=== PATIENT | male | born 1950 | race Caucasian/White ===

== ENCOUNTER → 2017-11-23 | Outpatient (CLI) | payer MEDICARE, BC ==
--- NOTE | 2017-11-23 08:32 | US ---
EXAMINATION TYPE: US prostate transrectal DATE OF EXAM: 11/23/2017 COMPARISON: NONE CLINICAL HISTORY: R97.2 Elevated prostate specific antigen [PSA]. Elevated PSA This examination was performed using the transrectal probe. EXAM MEASUREMENTS: Gland Size: 4.4 x 2.6 x 5.0cm Volume: 29.7ml Predicted PSA: 3.6 Actual PSA (if available):6.4 Mildly heterogeneous gland without any definite lesions seen within the peripheral zone, calcificatio ns seen within central zone. IMPRESSION: 1. The prostate gland is heterogenous without discrete hypoechoic peripheral zone nodule. This should not preclude the need for biopsy in a patient with elevated PSA. 2. 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 Predicted PSA = volume x 0.12 ng/ml Calculated Volume = 0.5236 x L x W x H
== END | disposition home or self-care (01) ==
LOC: RADUSMAIN 07:15
PROVIDERS: ATTEND Family Medicine
DX: N40.0 Benign prostatic hyperplasia without lower urinary tract symptoms (principal)
CPT/HCPCS: 76872

== ENCOUNTER → 2022-10-12 | Outpatient (CLI) | payer MEDICARE, BC ==
--- NOTE | 2022-10-12 11:14 | MR ---
EXAMINATION TYPE: MR Prostate wo/w con DATE OF EXAM: 10/12/2022 10:02 AM COMPARISON: None. CLINICAL INDICATION:Male, 72 years old with history of C61 MALIGNANT NEOPLASM OF PROSTATE; [facility], TECHNIQUE: Multi-planar, multi-sequence imaging of the pelvis is performed prior to and following the uncomplicated administration of bolus intravenous gadolinium. CONTRAST: 8 Gadavist Interpretive Criteria: PI-RADS v2.1 SERUM PSA: 17.15 on 01/15/2022. 16.4 on 09/04/2021. 1.6 on 11/13/2020. SURGICAL PATHOLOGY: Biopsy performed 2018 * LEFT apex 3+3 = 6 [place], * RIGHT apex 3+3 = 6 [place] FINDINGS: Prostatic dimensions: 4.7 x 3.9 x 3.8 cm. "Bullet" Volume: 45.59 (PSA density=0.38 ng/mL/mL) CENTRAL GLAND (Central and Transition Zones/CZ+TZ): High DWI and low ADC signal within the left central gland apex measuring 16 x 12 mm and within the ri ght central gland apex is an area of low ADC signal without associated high DWI signal measuring at l east 10 mm. This area correlates with pathology report of a positive biopsy on the left. PERIPHERAL ZONE (PZ): Bilateral linear, indistinct wedgelike areas of low ADC, and low T2 signal, No evidence of masslike a bnormality, or localized perfusional hypervascularity, to further suggest a focus of clinically signi ficant prostate cancer. (PI-RADS 2) SEMINAL VESICLES (SV): Diffusely collapse or atrophic, bilaterally. PERIPROSTATIC TISSUES: Unremarkable. LYMPH NODES: No enlarged pelvic lymph node. REMAINING PELVIS: Bladder wall is within normal limits given distention. No abnormal free or organized intrapelvic fluid collection. No pathologic bowel dilation or mural thickening. Trace bilateral hydroceles. Scattered colonic diverticula. OSSEOUS STRUCTURES: No suspicious osseous abnormality. IMPRESSION: 1. Left central gland apex lesion compatible with prior positive biopsy. The right central gland apex is not definitively have a area of high DWI signal but there is an area of low DWI signal that may r eflect the area that was previously positive on biopsy. No evidence of extracapsular extension or met astatic disease at this time. 2. Mild BPH, estimated gland volume 45.59 mL. 3. No suspicious osseous lesion. No lymphadenopathy specifically no greater than 1.0 cm short axis ly mph nodes identified. No evidence of prostate adenocarcinoma involving the periprostatic tissues. 4. Colonic diverticulosis.
== END | disposition home or self-care (01) ==
LOC: RADMRIMAIN 08:24
PROVIDERS: ATTEND Urology
DX: C61 Malignant neoplasm of prostate (principal); N40.0 Benign prostatic hyperplasia without lower urinary tract symptoms; K57.30 Diverticulosis of large intestine without perforation or abscess without bleeding
CPT/HCPCS: 72197; A9585

== ENCOUNTER → 2022-11-09 | Outpatient (CLI) | payer MEDICARE, BC ==
[2022-11-09 15:32] LABS: BUN/Creat Ratio 10.09 Ratio (12.00-20.00); Blood Urea Nitrogen 11.1 mg/dL (9.0-27.0); Calcium 9.6 mg/dL (8.7-10.3); Carbon Dioxide 25.1 mmol/L (21.6-31.8); Chloride 95 mmol/L (96-109); Glucose 96 mg/dL (70-110); Potassium 4.7 mmol/L (3.5-5.5); Sodium 132 mmol/L (135-145)
[2022-11-09 16:15] LABS: Basophils # (A) 0.07 X 10*3/uL (0.00-0.10); Eosinophils # (A) 0.06 X 10*3/uL (0.04-0.35); Eosinophils % (A) 0.9 %; HCT 39.7 % (39.6-50.0); HGB 14.3 d/dL (12.0-15.0); Lymphocytes # (A) 2.03 X 10*3/uL (0.90-5.00); Lymphocytes % (A) 29.8 %; MCH 36.6 pg (27.0-32.0); MCV 101.5 FL (80.0-97.0); Mean Platelet Volume 9.8 FL (9.5-12.2); Monocytes # (A) 0.79 X 10*3/uL (0.20-1.00); Monocytes % (A) 11.6 %; NRBC Per 100 WBC 0 X 10*3/uL (0.00-0.01); Neutrophils # (A) 3.83 X 10*3/uL (1.80-7.70); Neutrophils % (A) 56.3 %; Platelet Count 266 X 10*3/uL (140-440); RBC 3.91 X 10*6/uL (4.40-5.60); RDW 11.5 % (11.5-14.5); WBC 6.81 X 10*3/uL (4.50-10.00)
== END | disposition home or self-care (01) ==
LOC: LABPAT 09:03
PROVIDERS: ATTEND Urology
DX: Z01.812 Encounter for preprocedural laboratory examination (principal); C61 Malignant neoplasm of prostate
CPT/HCPCS: 80048; 85025

== ENCOUNTER 2022-11-18 10:51 | Day surgery (SDC) | payer MEDICARE, BC ==
--- NOTE | 2022-11-17 19:27 | P.GSHP ---
History of Present Illness H&P Date: 11/17/22 72 yo male with a diagnosis with prostate cancer, 12/2017, 2/12 g 6 rt and left apices in a 26 ml prostate. His psa was 8.5. He had a trus with negative biopsies 12/2019. His psa has risen to 17 last year and 23 this year. He had an mri recently identifying a pyrad 5 area in the left central gland apex in a 45 gm prostate. Due to that and the rising psa he comes for a fusion biopsy by Dr Peralta. - Constitutional Constitutional: Denies chills, Denies fever - EENT Eyes: denies blurred vision, denies pain Ears, nose, mouth and throat: Denies headache, Denies sore throat - Cardiovascular Cardiovascular: Denies chest pain, Denies shortness of breath - Respiratory Respiratory: Denies cough, Denies 7 - Gastrointestinal Gastrointestinal: Denies abdominal pain, Denies diarrhea, Denies nausea, Denies vomiting - Genitourinary (Female) Genitourinary: Denies dysuria, Denies hematuria - Genitourinary (Male) Genitourinary: Denies dysuria, Denies hematuria - Musculoskeletal Musculoskeletal: Denies myalgias - Integumentary Integumentary: Denies pruritus, Denies rash - Neurological Neurological: Denies numbness, Denies weakness - Psychiatric Psychiatric: Denies anxiety, Denies depression - Endocrine Endocrine: Denies fatigue, Denies weight change Past Medical History Past Medical History: Hypertension, Prostate Disorder Additional Past Medical History / Comment(s): seasonal allergies History of Any Multi-Drug Resistant Organisms: None Reported Past Surgical History: Back Surgery, Hernia Repair Additional Past Surgical History / Comment(s): back surgery x2 2002 last one. Past Anesthesia/Blood Transfusion Reactions: No Reported Reaction Smoking Status: Former smoker - Past Family History Father Family Medical History: Cancer Additional Family Medical History / Comment(s): lung Medications and Allergies Home Medications Medication Instructions Recorded Confirmed Type Fluticasone Propionate [Flonase 1 spray EA NOSTRIL DAILY PRN 11/12/22 11/12/22 History Allergy Relief] Losartan/Hydrochlorothiazide 1 tab PO DAILY 11/12/22 11/12/22 History [Losartan-Hctz 100-25 mg Tab] Allergies Allergy/AdvReac Type Severity Reaction Status Date / Time No Known Allergies Allergy Verified 11/12/22 15:21 Surgical - Exam - General well developed, well nourished, no distress - Eyes normal ocular movement, no icteric - ENT no hearing loss, no congestion - Neck no masses, trachea midline - Respiratory normal respiratory effort, clear to auscultation - Abdomen Abdomen: soft, non tender, no guarding, no rigid, no rebound - Integumentary no rash, no abnormal pigmentation - Neurologic no disoriented, no combative - Psychiatric oriented to time, oriented to person, oriented to place, speech is normal, memory intact Assessment and Plan Assessment: Impression: Ca prostate, positive mri, pyrad 5 lesion Plan: transrectal us with fusion biopsy.
[2022-11-18 12:36] VITALS: RESP 16; TEMP 97.5
[2022-11-18] MEDS: LACTATED RINGERS 1,000 ML IV ONE (12:45)
[2022-11-18] MEDS ORDERED: LACTATED RINGERS 1,000 ML IV ONE (12:45)
[2022-11-18] MEDS ORDERED: MIDAZOLAM 2 MG/2 ML VIAL IVP ONE (13:03)
[2022-11-18] MEDS: GENTAMICIN 100 MG in SODIUM CHLORIDE 0.9% 100 ML IVPB PRN ×2 (13:05→14:18)
[2022-11-18] MEDS ORDERED: MIDAZOLAM 2 MG/2 ML VIAL ONE (14:18)
[2022-11-18] MEDS ORDERED: fentaNYL (PF) 50 MCG/ML 2 ML AMP ONE (14:18)
[2022-11-18] MEDS ORDERED: PROPOFOL 10 MG/ML 20 ML VIAL IV ONE (14:18)
[2022-11-18] MEDS ORDERED: SODIUM CHLORIDE 0.9% 100 ML with GENTAMICIN 100 MG IV ONE ×2 (14:18)
--- NOTE | 2022-11-18 14:44 | P.OP ---
Date of Procedure: 11/18/22 Preoperative Diagnosis: Adenocarcinoma the prostate Postoperative Diagnosis: Same Procedure(s) Performed: MRI ultrasound fusion biopsies of the prostate Anesthesia: MAC Surgeon: Yusuf Peralta Estimated Blood Loss (ml): 5 IV fluids (ml): 200 Pathology: other (Prostate biopsies) Condition: stable Disposition: PACU Indications for Procedure: Patient is a 72-year-old white male diagnosed with prostate cancer in 2018. His Nyla score is 6/10. He chose active surveillance overtreatment. His PSA level at the time of diagnosis was 8.5 but has risen to 23. Recent MRI shows a left central gland PI-RADS 5 lesion. Operative Findings: 3 biopsies obtained from target lesion, additional 12 biopsies obtained. Description of Procedure: The patient was taken to the operating room and placed in the left lateral decubitus position. The Novogy transrectal ultrasound probe was placed intrarectally. It was then placed within the stand of the [employer] MRI/TRUS Fusion for Prostate Biopsy system. The prostate was imaged in both the axial and sagittal planes, revealing a prostate volume of 33 mL. Using the Biopty gun, 3 biopsies were obtained from the left-sidid target lesion. The remaining biopsies of the peripheral zone were obtained utilizing a standard template. Once the procedure was completed, the ultrasound probe was removed. The patient tolerated the procedure well was taken to the recovery room stable condition.
[2022-11-18 15:23] VITALS: BP 108/70; PULSE 78
== END 2022-11-18 15:41 | disposition home or self-care (01) ==
LOC: OR 10:51
PROVIDERS: ATTEND Urology
DX: C61 Malignant neoplasm of prostate (principal); R97.20 Elevated prostate specific antigen [PSA]; I10 Essential (primary) hypertension; Z87.891 Personal history of nicotine dependence; Z79.899 Other long term (current) drug therapy
CPT/HCPCS: 55700; 88344; 88305; J2250; J1580 ×2; J0690; J3010; J2704

== ENCOUNTER → 2022-12-21 | Outpatient (CLI) | payer MEDICARE, BC ==
[2022-12-21 10:12] LABS: African American GFR (CKD) >90 (>60 ml/min/1.73 sqM); Blood Urea Nitrogen 12 mg/dL (9-20); Non-African American GFR(CKD) 86 (>60 ml/min/1.73 sqM)
--- NOTE | 2022-12-21 13:52 | CT ---
EXAMINATION TYPE: CT abdomen pelvis w con CT DLP: 1407 mGycm, Automated exposure control for dose reduction was used. DATE OF EXAM: 12/21/2022 11:45 AM COMPARISON: Bone scan 12/21/2022, MRI prostate 10/12/2022. Nuclear bone scan same day. CLINICAL INDICATION:Male, 72 years old with history of C61 MALIGNANT NEOPLASM OF PROSTATE; Malignant neoplasm of prostate. TECHNIQUE: Axial CT of the abdomen and pelvis. Sagittal and coronal reformats were created on a [employer] workstation. Contrast used:100ml mL of Isovue 300 with IV Contrast, (none if empty) Oral contrast used: with Oral Contrast (none if empty) FINDINGS: LOWER CHEST: Unremarkable ABDOMEN LIVER: Small subcentimeter probable cyst. GALLBLADDER AND BILE DUCTS: Unremarkable. PANCREAS: Unremarkable. SPLEEN: Unremarkable. ADRENAL GLANDS: Unremarkable. KIDNEYS AND URETERS: No evidence of hydronephrosis or renal calculus. The ureters are unremarkable. L eft renal cortical cyst. PELVIS BLADDER: Previous lesion seen on prior MRI is less well appreciated on the CT exam. There is no pelvi c lymphadenopathy visualized. Specifically there is no greater than 1.0 cm lymph node in short axis. REPRODUCTIVE: Unremarkable. ABDOMEN & PELVIS STOMACH AND BOWEL: No evidence of bowel obstruction. PERITONEUM/RETROPERITONEUM: No evidence of pneumoperitoneum or free fluid. VASCULATURE: Moderate atherosclerotic calcifications are present throughout the abdominal aorta and i ts branches. No evidence of aortic aneurysm. MUSCULOSKELETAL: No acute osseous abnormalities. Moderate disc degeneration changes are present throu ghout the thoracolumbar spine. Grade 1 anterolisthesis of L3 on L4. LYMPH NODES: No gross evidence for lymphadenopathy. SOFT TISSUE/ABDOMINAL WALL: Unremarkable IMPRESSION: 1. No evidence for metastatic disease at this time. No lymphadenopathy or suspicious osseous lesion. Findings correlate with nuclear medicine bone scan same day. 2. Prostate gland lesion seen on prior MRI is not well appreciated due to technique of CT.
--- NOTE | 2022-12-21 14:07 | NM ---
EXAMINATION TYPE: NM bone scan whole body DATE OF EXAM: 12/21/2022 1:52 PM CLINICAL INDICATION:Male, 72 years old with history of C61 MALIGNANT NEOPLASM OF PROSTATE; COMPARISON: CT same day, MRI prostate 10/12/2022. TECHNIQUE: Intravenous administration 23.3 mCi Tc 99m MDP followed by multiple scintigraphic images o f the appendicular and axial skeleton. Images acquired 3 hours post injection. FINDINGS: No abnormal uptake is identified within the appendicular or axial skeleton to suggest metastatic dise ase. There is increased uptake within the bilateral shoulder, sternoclavicular, and sacroiliac joints con sistent with degenerative changes. No other photopenic areas or areas of increased activity are ident ified. Physiologic radiotracer activity is demonstrated in the kidneys and bladder. IMPRESSION: 1. Nothing to suggest metastatic disease.
== END | disposition home or self-care (01) ==
LOC: RADNMMAIN 09:18
PROVIDERS: ATTEND Radiology Radiation Oncology
DX: C61 Malignant neoplasm of prostate (principal); N42.89 Other specified disorders of prostate
CPT/HCPCS: 82565; 84520; 74177; 36415; 78306; Q9967